=== PATIENT | female | born 1980 | race Caucasian/White ===

== ENCOUNTER 2018-05-27 19:00 | Emergency (ER) | payer MEDICAID ==
[2018-05-27 19:53] VITALS: BP 133/83
== END 2018-05-27 20:14 | disposition home or self-care (01) ==
LOC: ED 19:00
DX: S61.211A Laceration without foreign body of left index finger without damage to nail, initial encounter (principal); W27.8XXA Contact with other nonpowered hand tool, initial encounter; Y92.009 Unspecified place in unspecified non-institutional (private) residence as the place of occurrence of the external cause; Z23 Encounter for immunization; F17.200 Nicotine dependence, unspecified, uncomplicated
CPT/HCPCS: 90715

== ENCOUNTER 2020-03-07 15:06 | Emergency (ER) | payer MEDICAID ==
[~2020-03-07] VITALS: Ht 172.7 cm; Wt 66.4 kg
[2020-03-07] MEDS ORDERED: ORPHENADRINE C100 MG PO (16:19)
[2020-03-07] MEDS ORDERED: TRAMADOL 50 MG TAB PO (16:19)
[2020-03-07 17:00] VITALS: BP 152/77
== END 2020-03-07 17:00 | disposition home or self-care (01) ==
LOC: ED 15:06
DX: S30.0XXA Contusion of lower back and pelvis, initial encounter (principal); F17.210 Nicotine dependence, cigarettes, uncomplicated; W10.9XXA Fall (on) (from) unspecified stairs and steps, initial encounter; Y92.009 Unspecified place in unspecified non-institutional (private) residence as the place of occurrence of the external cause
CPT/HCPCS: J2360

== ENCOUNTER → 2021-09-16 | Outpatient (CLI) | payer MEDICAID ==
[~2021-09-16] MED LIST: ORPHENADRINE C100 MG PO; TRAMADOL 50 MG TAB PO
== END ==
LOC: MAMMO 12:43
DX: Z12.31 Encounter for screening mammogram for malignant neoplasm of breast (principal); N63.20 Unspecified lump in the left breast, unspecified quadrant

== ENCOUNTER → 2022-10-05 | Outpatient (CLI) | payer MEDICAID | LOC: MAMMO 15:46 | DX: Z12.31 Encounter for screening mammogram for malignant neoplasm of breast (principal) ==